=== PATIENT | male | born 1965 | race Caucasian/White ===

== ENCOUNTER 2017-03-20 03:34 | Inpatient (IN) | payer BC, MEDICARE ==
[2017-03-20] MEDS ORDERED: Ondansetron HCl/PF 4 MG/2 ML Vial ONE (04:56)
[2017-03-20] MEDS ORDERED: Morphine 4 MG/ML Carpuject ONE (04:56)
[2017-03-20 05:44] LABS: Troponin I 0.313 ng/mL (< 0.028)
[2017-03-20] MEDS ORDERED: Milk Of Magnesia 30 ML UDCUP PO PRN (06:16)
[2017-03-20] MEDS ORDERED: Artificial Tears 18 DROP/0.9 ML EA EYE PRN (06:16)
[2017-03-20] MEDS ORDERED: Acetaminophen 325 MG TAB PO PRN (06:16)
[2017-03-20] MEDS ORDERED: Chloraseptic Spray 180 ml Bottle PO PRN (06:16)
[2017-03-20] MEDS ORDERED: Loratadine 10 MG TAB PO PRN (06:16)
[2017-03-20] MEDS ORDERED: Ondansetron ODT 4 MG TAB PO PRN (06:16)
[2017-03-20] MEDS ORDERED: Zolpidem Tartrate 5 MG TAB PO PRN (06:16)
[2017-03-20] MEDS ORDERED: Eucerin (Mineral Oil/Petrolatum,White) 30 gm Jar TOP PRN (06:16)
[2017-03-20] MEDS ORDERED: Mag-Al 1200 mg/1200 mg/30 ML UDCUP PO PRN (06:16)
[2017-03-20] MEDS ORDERED: Sodium Chloride 0.65% Nasal 44 ML BOT EA NARE PRN (06:16)
[2017-03-20] MEDS ORDERED: Diabetic Tussin 200 MG/10 ML UDCUP PO PRN (06:16)
[2017-03-20] MEDS ORDERED: Ondansetron HCl/PF 4 MG/2 ML Vial IVP PRN (06:16)
[2017-03-20] MEDS ORDERED: Senokot 8.6 MG TAB PO PRN (06:16)
[2017-03-20] MEDS ORDERED: Loperamide HCl 2 MG CAP PO PRN (06:16)
[2017-03-20] MEDS ORDERED: hydrALAZINE 20 MG/ML VIAL SLOW IVP PRN (06:16)
--- NOTE | 2017-03-20 08:03 | HP ---
PRIMARY CARE PHYSICIAN: Neftali Loja M.D. REASON FOR ADMISSION: Transfer from [facility] for chest pain and non-STEMI. HISTORY OF PRESENT ILLNESS: A 51-year-old male with a history of tobacco abuse disorder, as well as history of myocardial infarction and coronary artery disease with stent, who is not taking any specific medication. He has underlying noncompliance history. He has ongoing smoking. He went to [facility] with acute onset of chest pain. Patient reports that chest pain started when he was resting at home which was substernal as well as left-sided in location, pressure-like sensation associated with nausea and shortness of breath. Patient describes pain as dull in nature about 10/10 in intensity. It was very severe when it started and after emergency room treatment, patient's pain reduced but not completely subsided. The patient reports that all of this has been started while doing sex. He took Viagra yesterday evening. He denies any associated dizziness, palpitations or syncope. He denies any pleuritic chest pain. He denies any fever or chills. He denies any hematochezia, melena , constipation, diarrhea, UTI symptoms. He denies any lower extremity edema or any immobilization. At [facility], patient's electrocardiogram was unremarkable and his first troponin was negative. When he was transferred to our emergency room , we did second cardiac enzyme and that was significantly abnormal. Patient was still having pain. EMERGENCY ROOM COURSE: Patient was given aspirin 324 mg, Lopressor 5 mg x2 and Lovenox 1 mg per kg at [facility]. Patient was also given morphine 2 mg IV push for his pain and he was given IV fluid. PAST MEDICAL HISTORY: Hypertension, but the patient is not taking any medication, history of DE with coronary artery disease with stent placement, medical noncompliance. PAST SURGICAL HISTORY: Patient has amputation of tip of the third digit of right upper extremity, tonsillectomy, bilateral hip replacement, cardiac catheterization with stent placement. PAST PSYCHIATRIC HISTORY: Medical noncompliance, no specific psychiatric history. SOCIAL HISTORY: Patient is smoking about 1.5 packs per day. He denies any alcohol abuse. He denies any other illicit drug abuse. 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 FAMILY HISTORY: No strong family history of premature coronary artery disease, stroke or cancer. ALLERGIES: Patient denies any allergies to medications. CURRENT HOME MEDICATION: Patient is taking [place] 10 one tablet as needed basis. REVIEW OF SYSTEMS: The following complete review of systems was negative, unless otherwise mentioned in the HPI or below: Constitutional: Weight loss or gain, ability to conduct usual activities. Skin: Rash, itching. Eyes: Double vision, pain. ENT/Mouth: Nose bleeding, neck stiffness, pain, tenderness. Cardiovascular: Palpitations, dyspnea on exertion, orthopnea. Respiratory: Shortness of breath, wheezing, cough, hemoptysis, fever or night sweats. Gastrointestinal: Poor appetite, abdominal pain, heartburn, nausea, vomiting, constipation, or diarrhea. Genitourinary: Urgency, frequency, dysuria, nocturia. Musculoskeletal: Pain, swelling. Neurologic/Psychiatric: Anxiety, depression. Allergy/Immunologic: Skin rash, bleeding tendency. Please see my HPI for pertinent positive and negative. All other review of systems reviewed and negative except as mentioned in the HPI. PHYSICAL EXAMINATION: VITAL SIGNS: On arrival to [facility], blood pressure 192/101, pulse 95, respiratory rate 18, saturation 97% on room air, temperature 98.2, weight 86.1 kilograms, currently blood pressure improved to 118/57. GENERAL: Patient is currently alert, awake, no obvious acute distress. HEAD: Normocephalic, atraumatic. EYES: Pupils round, reactive to light. Extraocular muscle intact. ENT: Oropharynx within normal limits. Moist mucous membranes. No oral lesions. No pharyngeal erythema, no exudates. NECK: Supple, no JVD, no thyromegaly, no carotid bruit. LUNGS: Clear to auscultation without any rhonchi or rales. CARDIAC: S1, S2 regular without any murmur, no gallop, no rub. ABDOMEN: Soft, bowel sounds present. No suprapubic tenderness. No organomegaly, no mass, no peritoneal sign. BACK: Examination unremarkable, no CVA tenderness. EXTREMITIES: Upper extremity passive movements of all joints are normal. Lower extremities: No edema. Good peripheral pulsation. SKIN: No skin rash. HEMATOLOGICAL SYSTEM: No lymphadenopathy. PSYCHIATRIC: Normal affect. NEUROLOGIC: The patient is alert and oriented x3. Cranial nerves II-XII intact. Motor and sensation within normal limits. Reflexes symmetrical. No focal neurological deficit noted. IMAGING DATA AND SIGNIFICANT LABORATORY DATA: 1. EKG based on my review reveals normal sinus rhythm, nonspecific ST-T changes. 2. Second EKG after troponin elevation also showed normal sinus rhythm without any change. 3. CBC: WBC 10.7, hemoglobin 13.6, and platelets 398 with 4 band. 4. BMP: Sodium 144, potassium 3.8, chloride 103, carbon dioxide 27, anion gap 18, BUN 20, creatinine 1.24, glucose 140, calcium 9.3. 5. LFT: AST 14, ALT 16, alkaline phosphatase 88, albumin 4.3, lipase 24. CK- MB 3.4, troponin I less than 0.010, subsequently troponin 0.313. 6. Chest x-ray based on my review, no acute cardiopulmonary process. ASSESSMENT AND PLAN/IMPRESSION: 1. Non-ST elevation myocardial infarction. This patient has acute onset of angina that started with sex. Patient took Viagra and that is why we will avoid nitroglycerin to prevent hypotension. The patient's first troponin was normal and second troponin is significantly abnormal. His EKG is normal. Currently, still patient has reduced intensity pain. At this point, patient already received Lopressor 5 mg x2 at [facility], aspirin 325 mg and Lovenox 1 mg per kg at [facility]. We will keep this patient in the hospital for full admission. We will consult cardiology. The patient may need a cardiac catheterization to rule out in-stent stenosis versus new stenoses. The patient has several risk factors of coronary artery disease including smoking, noncompliance with the treatment. We will check lipid profile for risk stratification and we will also start Lipitor 40 mg p.o. at bedtime. We will continue with Coreg 3.125 mg p.o. b.i.d. Healthy lifestyle measures discussed with the patient. We will obtain echocardiography to assess ejection fraction and other structural abnormality. We will check urine drug screen. Further decisions will defer to Cardiology. 2. History of coronary artery disease with history of stent. The patient is not taking any medication at this point. He is very noncompliant with the treatment. 3. Please see for further details in problem #1. 4. Tobacco abuse disorder. Smoking cessation counseling given. Healthy lifestyle measures discussed with the patient. We will offer nicotine patch if needed. 5. Hypertension. We are starting Coreg 3.125 mg p.o. b.i.d. We will also start ELIS inhibitor if needed based on echocardiographic finding. 6. Medical noncompliance. I provided patient counseling to be compliant with medical treatment. 7. Deep venous thrombosis prophylaxis. Patient is already on full dose of Lovenox therapy. 8. Gastrointestinal prophylaxis. Pepcid 20 mg p.o. b.i.d. 9. Code status: The patient is FULL CODE. The patient is making his decision by himself. He does not have any surrogate decision maker. Disposition and plan based on clinical course and cardiology recommendation, this patient expected to stay in hospital more than 2 midnights. Plan of care discussed with the patient and family member at bedside in the emergency room. MTDD
[2017-03-20 08:42] LABS: Troponin I 0.597 ng/mL (< 0.028)
[2017-03-20] MEDS ORDERED: Nicotine 21 MG PATCH TD PRN (09:00)
[2017-03-20] MEDS ORDERED: Aspirin 325 MG TAB PO SCH (09:00)
[2017-03-20] MEDS ORDERED: Enoxaparin Sodium 80 MG/0.8 ML SYRINGE SC SCH (09:00)
[2017-03-20] MEDS ORDERED: Clopidogrel Bisulfate 75 MG TAB ONE ×2 (10:10→10:14)
[2017-03-20] MEDS ORDERED: Clopidogrel Bisulfate 300 MG TAB PO SCH (10:45)
[2017-03-20] MEDS ORDERED: Iopamidol 370 76% 50 ML VIAL FS ONE (11:54)
[2017-03-20] MEDS ORDERED: Iopamidol 370 76% 100 ML VIAL ONE (11:54)
[2017-03-20 12:15] LABS: Troponin I 0.874 ng/mL (< 0.028)
[2017-03-20] MEDS ORDERED: Communication Order-Pharmacy FS SCH (12:30)
[2017-03-20] MEDS ORDERED: Sodium Chloride 0.9% 1,000 ML IV SCH (12:30)
--- NOTE | 2017-03-20 13:17 | CON ---
DATE OF CONSULTATION: 03/20/2017 REASON FOR CONSULTATION: Non-ST elevation myocardial infarction with ongoing chest pain. HISTORY OF PRESENT ILLNESS: Mr. Yepez is a 51-year-old man. The patient is a previous patient of Dr. Janak Bermeo with a previous history of myocardial infarction. The patient initially presented with an acute inferior myocardial infarction in 03/2014. He was take n on an emergency basis to the cardiac catheterization lab and was found to have acute inferior wall myocardial infarction. He did need a transient pacing for severe bradycardia. The patient was found to have the followin. Left main widely patent. 2. LAD, 30%-40% eccentric plaque in the mid LAD. 3. Ramus, no significant stenosis. 4. Left circumflex, 20% plaque. 5. Right coronary was 100% occluded distal to the posterior descending branch. A stent was placed, 3.0 x 28 mm Promus drug-eluting stent at 12 atmospheres. There was noted to be a codominant artery. Reading the notices, the right coronary was totally occluded distally prior to the PDA. From readin g the note, it looks like the stent was placed across the PDA. The patient's bradycardia improved subsequently. The patient has done relatively well following that, but he said last night, he had the onset of allison re chest pain. Ultimately, he came to the emergency room. EKG showed an old inferior infarct with Q-waves in lead 3 and aVF, but no ST changes. The patient wa s having initially severe chest pain, continues to have chest pain now, although, it is less severe. Medications, the patient stopped taking all of his medications including aspirin. He was given aspir in and Lovenox in the [facility]. He has been given Plavix 300 mg here. PAST SURGICAL HISTORY: Amputation at the tip of the third digit, right upper extremity. SOCIAL HISTORY: Smokes one pack of cigarettes per day. No alcohol. FAMILY HISTORY: No strong family history of premature coronary artery disease. ALLERGIES: None known. MEDICATIONS: He stopped all medicines. The only medicine he was taking is [place] as needed basis. PHYSICAL EXAMINATION: GENERAL: This is a 51-year-old man who says he did not get much sleep last night. VITAL SIGNS: Blood pressure 130/70, pulse 60, it is regular. HEENT: Eyes: Sclerae nonicteric. Mouth, mucous membranes moist. NECK: Supple, no lymphadenopathy. LUNGS: Clear, no wheezing, rales or rhonchi. CARDIAC: Normal S1, normal S2. There is no murmur, rub or gallop. ABDOMEN: Soft, nontender, no hepatosplenomegaly. EXTREMITIES: Warm, dry, no clubbing, cyanosis or edema. HEMATOLOGIC: No unusual bruising. GENITOURINARY: No burning with urination. MUSCULOSKELETAL: No unusual joint abnormalities. Peripheral pulses are intact in the right leg and pedal and posterior tibial pulses. LABORATORY DATA AND X-RAY FINDINGS: EKG, sinus rhythm with biphasic T waves in V2 and V3 as well as V4. Troponin level has gone from 0.313 to 0.874. Creatinine was 1.24. BNP 11. Hemoglobin is 13.6, harsha tocrit 40.4. ASSESSMENT: 1. Non-ST elevation myocardial infarction with continued angina and slight increased levels of tropo susan. 2. Noncompliance, has had stopped all medicines. 3. Noncompliance with smoking cessation. Continue to smoke. 4. History of bradycardia when he had the inferior myocardial infarction. 5. Ongoing chest pain. 6. History of Viagra dose over 12 hours ago. The exact time is not completely certain, he thinks it is about 11:00. PLAN: At this time, since he has continued chest pain, we will proceed to cardiac catheterization la b. Discussed there is a risk of severe hypotension if nitroglycerin as needed, nitroglycerin may be needed in case an intervention is indicated. I will give intravenous fluids first and proceed. Disc ussed risks of stroke, heart attack, iodine allergy, loss of blood supply to the leg or kidney, risk of severe reaction to nitrates in case if needed. All discussed with the patient and . They al so understand that it is essential that he take medications as prescribed. He has not been taking ev en aspirin. I have to discuss with the family for now and he needs to take an aspirin every day for the rest of his life.
[2017-03-20] MEDS ORDERED: Fentanyl 100 MCG/2 ML VIAL ONE ×2 (13:30→14:48)
[2017-03-20] MEDS ORDERED: Nitroglycerin 100MG/250ML BOT 250 ML ONE (13:43)
[2017-03-20] MEDS ORDERED: Heparin 10,000 UNITS/1 ML VIAL ONE ×2 (13:55→14:42)
[2017-03-20] MEDS ORDERED: Clopidogrel Bisulfate 300 MG TAB ONE (14:48)
[2017-03-20] MEDS ORDERED: Acetaminophen/Codeine 30-300mg Tablet PO PRN (15:10)
[2017-03-20] MEDS ORDERED: traMADol HCl 50 MG TAB PO PRN (15:10)
[2017-03-20] MEDS ORDERED: TICAGRELOR 90 MG TABLET PO SCH ×2 (15:15→21:00)
[2017-03-20] MEDS ORDERED: Fentanyl 100 MCG/2 ML VIAL SLOW IVP PRN (15:16)
--- NOTE | 2017-03-20 16:07 | PDOC.EVN ---
Event Note - Event Note Event Note: Pt seen and examined in ER hold. chart reviewed. 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
[2017-03-20] MEDS ORDERED: hydrALAZINE 20 MG/ML VIAL ONE (17:04)
[2017-03-20] MEDS ORDERED: Atorvastatin Calcium 40 MG TAB PO SCH (21:00)
[2017-03-20] MEDS: HYDROcodone/Acetaminophen 10/325 mg Tablet PO PRN (21:16)
[2017-03-20] MEDS: Carvedilol 3.125 MG TAB PO SCH (21:18)
[2017-03-20] MEDS: Famotidine 20 MG TAB PO SCH (21:19)
[2017-03-20] MEDS: Sodium Chloride 0.9% 1,000 ML IV SCH ×2 (21:22)
[2017-03-21 01:23] VITALS: BMI 28.2
[2017-03-21] MEDS: HYDROcodone/Acetaminophen 10/325 mg Tablet PO PRN ×2 (03:07→08:12)
[2017-03-21] MEDS: Famotidine 20 MG TAB PO SCH ×2 (03:29→08:13)
[2017-03-21] MEDS: Carvedilol 3.125 MG TAB PO SCH ×2 (03:29→08:13)
[2017-03-21 05:37] LABS: #Eosinphils 0.2 thou/uL (0.0-0.7); #Lymphocytes 0.8 thou/uL (1.20-3.40); #Monocytes 0.7 thou/uL (0.11-0.59); #Neutrophils 6.7 thou/uL (1.40-6.50); %Basophils 0.2 % (0.0-1.0); %Eosinophils 1.9 % (0.0-10.0); %Lymphocytes 9.6 % (21.0-51.0); %Monocytes 8.2 % (0.0-10.0); %Neutrophils 80.1 % (42.0-75.0); Hemoglobin 12.1 g/dL (14.0-18.0); Mean Corpuscular HGB CONC 32.5 g/dL (32.0-36.0); Mean Corpuscular Hemoglobin 29.6 pg (27.0-31.0); Mean Platelet Volume 6.4 fL (7.4-10.4); Platelet Count 331 thou/uL (130-400); RBC Distribution Width 12.6 % (11.5-14.5); White Blood Cell (WBC) Count 8.4 thou/uL (4.8-10.8)
[2017-03-21 05:49] LABS: ALT (SGPT) 13 U/L (8-55); AST (SGOT) 15 U/L (5-34); Albumin 3.7 g/dL (3.5-5.0); Alkaline Phosphatase 69 U/L (40-150); Anion Gap 11 mmol/L (10-20); BUN (Urea Nitrogen) 12 mg/dL (8.4-25.7); Bilirubin, Total 0.3 mg/dL (0.2-1.2); Calc. Creatinine Clearance 121 mL/min (70-130); Calcium 8.5 mg/dL (7.8-10.44); Carbon Dioxide 25 mmol/L (22-29); Cardiac Risk 4.4 (Less than 4.5); Chloride 107 mmol/L (98-107); Cholesterol 148 mg/dl (< 200 Desired); Estimated GFR-MDRD 89; Globulin 2.5 g/dL (2.4-3.5); Glucose 116 mg/dL (70-105); HDL Cholesterol 34 mg/dL (>60 Neg Risk); LDL Cholesterol, Calculated 92 mg/dL; Protein, Total 6.2 g/dL (6.0-8.3); Sodium 139 mmol/L (136-145); Triglycerides 109 mg/dL (Less than 150)
[2017-03-21 06:05] LABS: Troponin I 1.743 ng/mL (< 0.028)
[2017-03-21 06:19] LABS: Bilirubin Negative (Negative); Blood, Urine Negative (Negative); Clarity CLEAR (Clear); Glucose, Urine (Dipstick) Negative (Negative); Leukocyte Negative (Negative); Nitrite Negative (Negative); Protein, Urine (Dipstick) Negative (Neg-Trace); Specific Gravity, Urine 1.017 (1.002-1.036); Urobilinogen 0.2 mg/dL (0.2-1.0); pH, Urine 6.5 (5.0-9.0)
[2017-03-21 06:22] LABS: Bacteria/HPF None Seen HPF (None Seen); Hyaline Casts/LPF 0-3 HYALINE CAST LPF (0-3 Hyaline); RBC/HPF 0-3 HPF (0-3); Squamous Epithelial None Seen HPF (0-3); WBC/HPF None Seen HPF (0-3)
[2017-03-21 06:27] LABS: Amphetamine Not Detected (NotDetected); Barbiturates Screen Not Detected (NotDetected); Benzodiazepine Screen Not Detected (NotDetected); Cocaine Metabolite Screen Not Detected (NotDetected); Medtox Control Line Valid? VALID (VALID); Medtox Reader # READER 1; Methadone Not Detected (NotDetected); Methamphetamine Not Detected (NotDetected); Opiate Screen Detected (NotDetected); Oxycodone Screen Not Detected (NotDetected); Phencyclidine (PCP) Not Detected (NotDetected); THC/Cannabinoid Screen Not Detected (NotDetected); Tricyclic Screen Not Detected (NotDetected)
[2017-03-21] MEDS: Sodium Chloride 0.9% 1,000 ML IV SCH (06:28)
[2017-03-21 08:16] VITALS: TEMP 98.3
[2017-03-21] MEDS ORDERED: Lisinopril 2.5 MG TAB PO SCH (09:00)
[2017-03-21] MEDS ORDERED: Aspirin 81 mg Enteric Coated Tablet PO SCH (09:00)
[2017-03-21] MEDS ORDERED: TICAGRELOR 90 MG TABLET PO SCH (09:00)
[2017-03-21] MEDS ORDERED: Morphine 5 MG/ML SYRINGE SLOW IVP PRN (11:02)
[2017-03-21 12:51] VITALS: BP 131/84
--- NOTE | 2017-03-21 13:59 | PRG ---
DATE OF SERVICE: 03/21/2017 SUBJECTIVE: The patient did well. No chest pain or pressure. He is outside now, not in his room, n ot on the floor. OBJECTIVE: VITAL SIGNS: Blood pressure 130/80, pulse when I examined him was 84. LUNGS: Clear. CARDIAC: Normal S1, normal S2. ABDOMEN: Soft, nontender. EXTREMITIES: No edema. LABORATORY DATA: Troponin was 1.7. ASSESSMENT: 1. Status post non-ST elevation infarction. 2. History of smoking. 3. History of noncompliance, off all medicines. 4. Hypercholesterolemia. PLAN: He is to go home on, 1. Brilinta 90 mg twice a day. 2. Aspirin 81 mg a day. 3. Lisinopril 2.5 mg a day. 4. Carvedilol 6.25 mg twice a day. 5. Lipitor 40 mg a day. 6. Gave him some samples and a discount card for Brilinta.
[2017-03-21] MEDS ORDERED: Carvedilol 6.25 MG TAB PO SCH (21:00)
--- NOTE | 2017-03-22 00:44 | DIS ---
PRIMARY CARE PHYSICIAN: Neftali Loja M.D. DATE OF ADMISSION: 03/20/2017 DATE OF DISCHARGE: 03/21/2017 CONDITION AT THE TIME OF DISCHARGE: Stable and improved. DISCHARGE DIAGNOSES: 1. Non-ST elevation myocardial infarction. 2. Tobacco abuse. 3. Hypertension. 4. Dyslipidemia. DISCHARGE MEDICATIONS: Brilinta 90 mg b.i.d., aspirin 81 mg daily, lisinopril 2.5 mg daily, Coreg 6. 25 mg b.i.d., Lipitor 40 mg daily. CONSULTATIONS: Cardiology, Dr. Nabil Abbott. PROCEDURES DONE: Include cardiac catheterization with drug-eluting stent in the LAD. Transthoracic echocardiogram which showed preserved ejection fraction of 50-55%, but inferior wall hy pokinesis. HISTORY OF PRESENTING ILLNESS: Mr. Yepez is a 51-year-old male with known history of coronary a rtery disease, status post stenting in the past, was very noncompliant with his modifications and con tinues to smoke who presented to the emergency room with complaints of chest pain and severe in inten sity. He was found to have elevated cardiac enzymes and received aspirin, Lopressor, and Lovenox in the Emergency Room along with pain medication and was admitted for further evaluation. Cardiology wa s called from the emergency room and his troponin continued to trend upwards. He received a dose of Plavix and was taken emergently to cardiac catheterization. He received a drug-eluting stent in the left anterior descending artery. He also has 40%, 50% and 60% stenoses elsewhere. After the cardiac catheterization, he remained hemodynamically stable. Dr. Abbott saw the patient and he was started back on aspirin, statin, beta juan, ELIS inhibitor as well as antiplatelet medication in the form B rilinta. Prior to discharge, he was asymptomatic. I discussed discharge plan with him and his significant oth er and they said they will be able to afford the medications. Samples for Brilinta were made availab le to them by Dr. Abbott as well. He was instructed to follow up with Dr. Abbott as well as his [facility] physician as soon as possible. PHYSICAL EXAMINATION: He was seen and examined prior to discharge. His physical exam included: VITAL SIGNS: Temperature 98.3, pulse of 81, respirations 18, saturating 95% on room air, blood press ure 131/84. GENERAL: No acute distress, awake, alert, oriented x3. CHEST: Clear to auscultation bilaterally. CARDIOVASCULAR: Rate and rhythm is regular. NEUROLOGIC: Nonfocal. LABORATORY DATA: CBC unremarkable. Serum chemistries showed troponin peaked at 1.742. Lipid panel within normal limits. Urine drug screen was negative except for opiates. He will follow up with cardiac rehabilitation as an outpatient.
--- NOTE | 2017-03-25 13:47 | EKG ---
Test Reason : Blood Pressure : / mmHG Vent. Rate : 070 BPM Atrial Rate : 070 BPM P-R Int : 146 ms QRS Dur : 098 ms QT Int : 432 ms P-R-T Axes : -14 067 083 degrees QTc Int : 466 ms Normal sinus rhythm Possible Inferior infarct , age undetermined Abnormal ECG Confirmed by RAJESH NICHOLSON ([id number]), website/blog editor EDUARDO WOODALL ([id number]) on 03/25/2017 1:46:53 PM Referred By: BHARAT Confirmed By:RAJESH NICHOLSON
--- NOTE | 2017-03-25 13:47 | EKG ---
Test Reason : Blood Pressure : / mmHG Vent. Rate : 069 BPM Atrial Rate : 069 BPM P-R Int : 140 ms QRS Dur : 100 ms QT Int : 426 ms P-R-T Axes : -13 079 071 degrees QTc Int : 456 ms Normal sinus rhythm Normal ECG Confirmed by RAJESH NICHOLSON ([id number]), assistant editor EDUARDO WOODALL ([id number]) on 03/25/2017 1:47:01 PM Referred By: Confirmed By:RAJESH NICHOLSON
== END 2017-03-21 13:39 | disposition home or self-care (01) | DRG 247 ==
LOC: ERS 03:34 → ERHOLD 05:43 → OBSVTOIN 05:43 → 2NO 20:44
PROVIDERS: ADMIT Internal Medicine; ATTEND Internal Medicine
PROC: 027034Z Dilation of Coronary Artery, One Artery with Drug-eluting Intraluminal Device, Percutaneous Approach (ICD-10-PCS; principal; 2017-03-20)
PROC: B2111ZZ Fluoroscopy of Multiple Coronary Arteries using Low Osmolar Contrast (ICD-10-PCS; 2017-03-20)
PROC: 02C03ZZ Extirpation of Matter from Coronary Artery, One Artery, Percutaneous Approach (ICD-10-PCS; 2017-03-20)
DX: I21.4 Non-ST elevation (NSTEMI) myocardial infarction (principal); E78.00 Pure hypercholesterolemia, unspecified; F17.210 Nicotine dependence, cigarettes, uncomplicated; I10 Essential (primary) hypertension; Z91.19 Patient's noncompliance with other medical treatment and regimen; E78.5 Hyperlipidemia, unspecified
CPT/HCPCS: 36415; 76942; 80053; 80061; 80306; 81001; 84484; 85025; 85347; 92941; 93005; 93010; 93306; 93454; 93798; 94760; 96374; 96375; J2270; C1769; C1874; C9606; J0360; J1644; J2405; J3010

== ENCOUNTER 2018-08-03 22:10 | Emergency (ER) | payer BC, MEDICARE ==
[2018-08-03] MEDS ORDERED: Morphine 4 MG/ML VIAL ONE (23:13)
[2018-08-03] MEDS ORDERED: Ondansetron PF 4 MG/2 ML Vial ONE (23:14)
[2018-08-03] MEDS ORDERED: diphenhydrAMINE 50 MG/ML VIAL ONE (23:29)
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
[2018-08-03] MEDS ORDERED: Bacitracin Zinc 1 Packet ONE (23:42)
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
== END 2018-08-04 01:15 | disposition home or self-care (01) ==
LOC: ERS 22:10
DX: S06.0X9A Concussion with loss of consciousness of unspecified duration, initial encounter (principal); S00.01XA Abrasion of scalp, initial encounter; N28.89 Other specified disorders of kidney and ureter; I10 Essential (primary) hypertension; I25.2 Old myocardial infarction; Z87.891 Personal history of nicotine dependence; Z79.891 Long term (current) use of opiate analgesic; Z79.899 Other long term (current) drug therapy; V43.62XA Car passenger injured in collision with other type car in traffic accident, initial encounter
CPT/HCPCS: 70450; 71260; 72125; 74177; 93005; 96374; 96375; J1200; J2270; J2405

== ENCOUNTER 2018-08-16 18:52 | Emergency (ER) | payer BC, MEDICARE ==
[2018-08-16 19:49] LABS: #Basophils 0.1 thou/uL (0.0-0.2); #Eosinphils 0.3 thou/uL (0.0-0.7); #Monocytes 0.7 thou/uL (0.11-0.59); %Basophils 0.7 % (0.0-1.0); %Lymphocytes 22.3 % (21.0-51.0); %Monocytes 7.6 % (0.0-10.0); %Neutrophils 66.4 % (42.0-75.0); Hemoglobin 12.2 g/dL (14.0-18.0); Mean Corpuscular HGB CONC 32.4 g/dL (32.0-36.0); Mean Corpuscular Hemoglobin 29.5 pg (27.0-31.0); Mean Corpuscular Volume 91.3 fL (78.0-98.0); Platelet Count 322 thou/uL (130-400); RBC Distribution Width 12.7 % (11.5-14.5); Red Blood Cell (RBC) Count 4.12 mill/uL (4.70-6.10); White Blood Cell (WBC) Count 9.1 thou/uL (4.8-10.8)
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
[2018-08-16 20:16] LABS: ALT (SGPT) 15 U/L (8-55); AST (SGOT) 12 U/L (5-34); Albumin 4.4 g/dL (3.5-5.0); Alkaline Phosphatase 102 U/L (40-150); Anion Gap 15 mmol/L (10-20); BUN (Urea Nitrogen) 10 mg/dL (8.4-25.7); Bilirubin, Total 0.3 mg/dL (0.2-1.2); Calc. Creatinine Clearance 0 mL/min (70-130); Calcium 8.8 mg/dL (7.8-10.44); Carbon Dioxide 27 mmol/L (22-29); Chloride 103 mmol/L (98-107); Estimated GFR-MDRD 70; Globulin 2.3 g/dL (2.4-3.5); Glucose 125 mg/dL (70-105); Lipase 17 U/L (8-78); Potassium 4.1 mmol/L (3.5-5.1); Protein, Total 6.7 g/dL (6.0-8.3); Sodium 141 mmol/L (136-145)
[2018-08-16] MEDS ORDERED: Morphine 4 MG/ML VIAL ONE (20:24)
== END 2018-08-16 21:28 | disposition home or self-care (01) ==
LOC: ERS 18:52
DX: S20.211A Contusion of right front wall of thorax, initial encounter (principal); I25.10 Atherosclerotic heart disease of native coronary artery without angina pectoris; I25.2 Old myocardial infarction; I10 Essential (primary) hypertension; Z87.891 Personal history of nicotine dependence; Z79.82 Long term (current) use of aspirin; Z79.899 Other long term (current) drug therapy; V69.9XXA Occupant (driver) (passenger) of heavy transport vehicle injured in unspecified traffic accident, initial encounter
CPT/HCPCS: 36415; 71045; 80053; 83690; 84484; 85025; 93005; 96372; J2270

== ENCOUNTER 2019-04-25 17:46 | Emergency (ER) | payer BC, MEDICARE ==
[~2019-04-25 17:46] MED LIST: Calcium Chloride 1 GM/10 ML Abboject SYRINGE ONE; EPINEPHrine 1 MG/10 ML Abboject SYRINGE ONE; Magnesium 5 GM/10 ML Abboject SYRINGE ONE; Sodium Bicarb 50 MEQ/50 ML Abboject 8.4% SYRINGE ONE
[2019-04-25 18:04] LABS: Base Excess-Venous -2.1 mmol/L (-2.0 to 3.0); Bicarbonate (HCO3v) 29.1 mmol/L (22.0-28.0); CO2 Tension (PvCO2) 83.4 mmHg (40.0-50.0); Calcium, Ionized 1.11 mmol/L (See Comments:); Chloride 110 mmol/L (98-107); Glucose 231 mg/dL (70-105); Hemoglobin - Calc 14.2 g/dL (14.0-18.0); Lactate 7.44 mmol/L (0.50-2.20); Sodium 149 mmol/L (138-145); T. Carbon Dioxide 31.7 mmol/L (22.0-28.0); vO2 Saturation-calc 46.8 % (60.0-85.0)
[2019-04-25 18:13] LABS: Bacteria/HPF None Seen HPF (None Seen); Bilirubin Negative (Negative); Blood, Urine 1+ (Negative); Clarity Turbid (Clear); Glucose, Urine (Dipstick) Normal (Negative); Leukocyte Negative Leu/uL (Negative); Nitrite Negative (Negative); Protein, Urine (Dipstick) 200 mg/dL (Neg-Trace); Squamous Epithelial 0-3 HPF (0-3); Urobilinogen Normal mg/dL (Less than 2)
[2019-04-25 18:14] LABS: Hemoglobin 13.7 g/dL (14.0-18.0); Mean Corpuscular HGB CONC 32.6 g/dL (32.0-36.0); Mean Corpuscular Hemoglobin 29.8 pg (27.0-31.0); Mean Corpuscular Volume 91.5 fL (78.0-98.0); Red Blood Cell (RBC) Count 4.61 mill/uL (4.70-6.10); White Blood Cell (WBC) Count 9.4 thou/uL (4.8-10.8)
[2019-04-25 18:16] LABS: Mean Platelet Volume 7.3 fL (7.4-10.4); Platelet Count 127 thou/uL (130-400)
[2019-04-25 18:22] LABS: Sperm/HPF 2+ HPF (None Seen)
[2019-04-25 18:24] LABS: Medtox Reader # READER 4
[2019-04-25 18:25] LABS: Amphetamine Not Detected (NotDetected); Barbiturates Screen Not Detected (NotDetected); Benzodiazepine Screen Not Detected (NotDetected); Cocaine Metabolite Screen Not Detected (NotDetected); Medtox Control Line Valid? VALID (VALID); Methadone Not Detected (NotDetected); Methamphetamine Not Detected (NotDetected); Opiate Screen Detected (NotDetected); Oxycodone Screen Detected (NotDetected); Phencyclidine (PCP) Not Detected (NotDetected); THC/Cannabinoid Screen Not Detected (NotDetected); Tricyclic Screen Not Detected (NotDetected)
[2019-04-25 18:35] LABS: ALT (SGPT) 85 U/L (8-55); AST (SGOT) 74 U/L (5-34); Albumin 4.1 g/dL (3.5-5.0); Alkaline Phosphatase 66 U/L (40-110); Anion Gap 21 mmol/L (10-20); BUN (Urea Nitrogen) 20 mg/dL (8.4-25.7); Bilirubin, Total 0.4 mg/dL (0.2-1.2); CK (CPK) 220 U/L (30-200); Calc. Creatinine Clearance 0 mL/min (70-130); Calcium 8.2 mg/dL (7.8-10.44); Carbon Dioxide 25 mmol/L (22-29); Chloride 110 mmol/L (98-107); Eosinophils 1 % (0-10); Estimated GFR-MDRD 61; Globulin 2.1 g/dL (2.4-3.5); Glucose 224 mg/dL (70-105); Lymphocytes 48 % (21-51); MDiff Complete? YES; Monocytes 6 % (0-10); Neutrophil 36 % (42-75); Platelet Morphology Comment Appears Decreased; Potassium 5.3 mmol/L (3.5-5.1); Protein, Total 6.2 g/dL (6.0-8.3); RBC Morphology Normal; Reactive Lymphocytes 9 % (0-10); Sodium 151 mmol/L (136-145)
== END 2019-04-25 18:37 | disposition expired ==
LOC: ERS 17:46
DX: I46.9 Cardiac arrest, cause unspecified (principal)
CPT/HCPCS: 31500; 51702; 80053; 80306; 81003; 81015; 82330; 82550; 82803; 83605; 84484; 85025; 92950; 96361; 96374; 96375; J0171; J2997; J3475